=== PATIENT | male | born 1960 | race Caucasian/White ===

== ENCOUNTER → 2025-06-14 | Outpatient (REF) | payer BC | LOC: M SMT 13:00 | PROVIDERS: ATTEND Urology | DX: R97.20 Elevated prostate specific antigen [PSA] (principal); C61 Malignant neoplasm of prostate ==

== ENCOUNTER → 2025-07-31 | Outpatient (CLI) | payer BC ==
[~2025-07-31] MED LIST: BICA50TA4 PO
== END ==
LOC: M ONCR 14:17
PROVIDERS: ATTEND General Practice
DX: C61 Malignant neoplasm of prostate (principal); Z87.891 Personal history of nicotine dependence

== ENCOUNTER → 2025-08-28 | Outpatient (RCR) | payer BC | LOC: M ONCR 08-07 07:26 | PROVIDERS: ATTEND General Practice | DX: Z51.0 Encounter for antineoplastic radiation therapy (principal); C61 Malignant neoplasm of prostate ==